=== PATIENT | male | born 1990 | race Caucasian/White ===

== ENCOUNTER 2016-12-07 05:36 | Day surgery (SDC) | payer BC ==
[2016-12-06 12:23] VITALS: BMI 24.3
[~2016-12-07] VITALS: Ht 200.7 cm; Wt 98.0 kg
[2016-12-07] VITALS (16 sets, daily range): BP systolic 120–138; BP diastolic 60–78; PULSE 75–90; RESP 10–20; Ht 200.7 cm; Wt 98.0 kg
[2016-12-07] MEDS ORDERED: CEFAZOLIN 1 GM INJ ONE (07:00)
[2016-12-07] MEDS ORDERED: SOD CHLORIDE 0.9% 1,000 ML IV SCH (07:00)
[2016-12-07] MEDS ORDERED: MIDAZOLAM 1 MG/ML 2 ML INJ ONE (09:46)
[2016-12-07] MEDS ORDERED: BUPIVACAINE 0.25%/EPI (SDV) 30 ML INJ ONE (09:46)
[2016-12-07] MEDS ORDERED: GLYCOPYRROLATE 1 MG INJ ONE (09:46)
[2016-12-07] MEDS ORDERED: PROPOFOL 20 ML ONE (09:46)
[2016-12-07] MEDS ORDERED: ROCURONIUM 50 MG INJ ONE (09:46)
[2016-12-07] MEDS ORDERED: EPINEPHrine 1 MG/ML 30 ML INJ ONE (09:46)
[2016-12-07] MEDS ORDERED: LIDOCAINE 2% (SDV) 5 ML INJ ONE (09:46)
[2016-12-07] MEDS ORDERED: NEOSTIGMINE 3 MG/3 ML SYRINGE ONE (09:46)
[2016-12-07] MEDS ORDERED: DEXAMETHASONE 4 MG/ML 1 ML INJ ONE (09:51)
[2016-12-07] MEDS ORDERED: ONDANSETRON 4 MG INJ ONE (09:51)
--- NOTE | 2016-12-07 10:07 | HPN ---
Date/Time of Note Date/Time of Note DATE: 12/07/16 TIME: 10:06 Interval H&P Admission Note Pt. seen H&P reviewed: No system changes DANIELLE CAST MD Dec 07, 2016 10:07
[2016-12-07] MEDS ORDERED: POLYMYXIN/BACITRACIN 1L IRRIG ONE (11:13)
[2016-12-07] MEDS ORDERED: ROPIVACAINE 0.5 % 30 ML VIAL ONE (13:08)
[2016-12-07] MEDS ORDERED: LIDOCAINE 2%/EPI 30 ML INJ ONE (13:09)
[2016-12-07] MEDS ORDERED: FLUMAZENIL 0.5 MG INJ ONE (13:43)
[2016-12-07] MEDS ORDERED: NALOXONE (0.4 MG/ML) INJ ONE (13:53)
[2016-12-07] MEDS ORDERED: HYDROCODONE/APAP (5/325) TAB PO PRN ×2 (14:00)
[2016-12-07] MEDS ORDERED: ACETAMINOPHEN 1000MG/100ML IV 100 ML IVPB SCH (14:00)
[2016-12-07] MEDS ORDERED: ONDANSETRON 4 MG INJ IV PRN ×2 (14:00→14:30)
[2016-12-07] MEDS ORDERED: morphine 10 MG INJ IV PRN (14:00)
[2016-12-07] MEDS ORDERED: HYDROmorphONE (0.2 MG/ML) 10ML SYG IV ONE (14:16)
[2016-12-07] MEDS: HYDROmorphONE (0.2 MG/ML) 10ML SYG IV PRN ×5 (14:18→14:43)
[2016-12-07] MEDS ORDERED: FENTAnyl 50 MCG/ML VIAL IV PRN ×2 (14:30)
[2016-12-07] MEDS ORDERED: HYDROmorphONE (0.2 MG/ML) 10ML SYG IV PRN ×2 (14:30)
--- NOTE | 2016-12-07 17:24 | OPR ---
DATE OF OPERATION: 12/07/2016 SURGEON: Danielle Rosa MD ANESTHESIOLOGIST: Harris Guzman MD PREOPERATIVE DIAGNOSIS: Left anterior cruciate ligament tear. POSTOPERATIVE DIAGNOSES 1. Left anterior cruciate ligament tear. 2. Left lateral meniscal tear. OPERATION PERFORMED 1. Arthroscopy of the left knee. 2. Arthroscopic anterior cruciate ligament reconstruction with gracilis hamstring autograft and tib ialis anterior allograft hybrid. 3. Arthroscopic lateral meniscectomy. 4. Chondroplasty. 5. Synovectomy. INDICATIONS: Flaco is a 26-year-old male, we have been seeing for an ACL tear that he sustained in the last year, as well as meniscal tears. Informed him of the risks of surgery, including pain, bl eeding, infection, scar, damage to neurovascular structures, failure of the surgery to work, blood c lots of the upper extremities/lower extremities, pulmonary embolism, risk of anesthesia and we re explained to the patient. Failure of the ligament repair, harvest site donor problems and other complications of ACL surgery were explained to the patient. He elected to proceed. PROCEDURE IN DETAIL: The patient was marked identified in preoperative holding, brought to the oper ating room, placed supine on a regular operating room table, the lateral side post. He was placed u nder general anesthesia. Bony prominences were well-padded and a tourniquet was placed high on the thigh. His left leg was prepped and draped in the usual sterile fashion and arthroscopy was initiat ed, after a timeout was performed. A diagnostic arthroscopy was first initiated and the positive findings included an anterior cruciate ligament tear, as well as a lateral meniscal tear. The tear was significantly larger on MRI of his lateral meniscus, but this had since healed and the fissure line was visible. There was one area o f radial-based tear and it was not healed and this area underwent a meniscectomy, using a combinatio n of biting and shaving instruments. Attention was turned to the remnant of the ACL. With the footprint gone and there was no attachment to the lateral wall, the notchplasty was performed, clearing the lateral wall for eventual ACL femo ral tunnel, as well as the same thing on the tibia. Arthroscope was removed and attention was turned to a medial based incision of the anterior medial t ibia, where incision was carried down to the hamstring tendons. First identified through the perios teal layer, the gracilis tendon was excised using a tendon stripper, and this was removed. The size of the gracilis tendon was lengthy; however, it was exceptionally thin and it was clear that combin ing this with semitendinosis would not constitute an appropriate sized graft. Therefore, the semite ndinosis was not harvested, the gracilis was kept and a tibialis anterior allograft, which was avail able, was opened and made available for use. On the back table, the 2 tendons were weaved together for a hybrid of allograft and autograft result ing in a robust sized graft of 10.5 in size. Arthroscopy was initiated, the plan was made for the t ibial tunnel using our guide, and this was drilled a size 10, and an accessory anteromedial portal w as made for our femoral tunnel with an over the top guide of 7 mm used, resulting in a 2 mm back wal l. Femoral tunnel was drilled as well. This was drilled to a size 25 socket for the graft. Attention was now turned to the graft itself, with a suture carried through both ends of the femur a nd tibia, and the graft passed with a Peterson and [employer] Ultrabutton used for femoral fixation. This was ratcheted in until the tendon was well-socketed within the femur. The knee was now taken throug h over 20 cycles of flexion, extension, with the graft well-tensioned, a posterior drawer force was applied, and at this time, DePuy Mitek screw sheath system was determined to be used for the tibia, but it was not of appropriate purchase. Therefore, this graft was re-tensioned manually with supervisor brake repair ior drawer force applied and a Sheffield staple was applied to perform tibial fixation; this was plac ed in the anteromedial tibia. The graft was checked and arthroscopy was initiated to confirm adequa te positioning of the graft, which was in good position and there was a negative Macarena and negativ e pivot shift. At this time, a 2nd Sheffield staple was placed more inferiorly for backup fixation. The limbs of the allograft were cut, the area was copiously irrigated and closure was performed wit h a 2-0 Vicryl, followed by 3-0 Monocryl and then nylon for this incision. The portals were closed with 2-0 Monocryl and a single nylon was placed higher on the lateral thigh for where the EndoButton sutures were and these were cut to size. A sterile dressing was applied and the DVT compression de vice was applied as well as a knee immobilizer. There was an issue obtaining the patient's hinged k nee brace, which we will deal with the insurance company to try and get, but for now he will remain partial weightbearing in full extension. Dictated By: DANIELLE FAULKNER/NTS Conf#: [id number] DID#: [id number]
== END 2016-12-07 16:41 | disposition home or self-care (01) ==
LOC: SDS 05:36
PROVIDERS: ATTEND Orthopaedic Surgery
DX: M23.8X2 Other internal derangements of left knee (principal); M23.201 Derangement of unspecified lateral meniscus due to old tear or injury, left knee
CPT/HCPCS: 29881; 29888; C1713; C1762; J0131; J0171; J0690; J1100; J1170; J2250; J2310; J2405; J2710; J2795; J3010; Z7512; Z7610

== ENCOUNTER 2016-12-28 12:03 | Emergency (ER) | payer BC ==
[~2016-12-28] VITALS: Wt 94.0 kg
[2016-12-28] MEDS ORDERED: HYDR-906 PO (15:07)
--- NOTE | 2016-12-28 15:48 | RADRPT ---
PROCEDURE: Ultrasound of the left lower extremity venous system. CLINICAL INDICATION: Left leg pain and swelling, deep venous thrombosis TECHNIQUE: Mathew scale with and without compression, color doppler, spectral doppler of the venous system of the left lower extremity was performed. Venous augmentation maneuvers were utilized. COMPARISON: No prior studies are available for comparison. FINDINGS: Common femoral vein: Patent. Femoral vein: Patent. Popliteal vein: Patent. Calf veins: Patent. No soft tissue abnormalities are identified. IMPRESSION: No evidence of a deep vein thrombosis within the left lower extremity. RPTAT: AADD .Filiberto Diaz MD, MD Date Time Electronically viewed and signed by .Filiberto Diaz MD, on 12/28/2016 15:47 .B/
[2016-12-28 15:56] VITALS: BP 133/78; PULSE 70; RESP 18; TEMP 97.5
--- NOTE | 2016-12-28 18:14 | ERD ---
ER Documentation Chief Complaint Date/Time DATE: 12/28/16 TIME: 18:12 Chief Complaint left calf pain from acl surgery and has postive d dimer, no sob or cp HPI Patient is a 26-year-old male with no medical problems who presents with left leg swelling. The patient went to physical therapy yesterday and had left foot swelling and left leg swelling. He was sent to the sports medicine doctor who order laboratory tests and found that he had a positive d-dimer. The patient denies chest pain or shortness of breath. The patient had surgery on his left knee to repair his ACL on December 07. Upon review of old medical records this is the patient's first visit to the emergency department. He says that his orthopedic doctor is Dr. Cast. ROS All systems reviewed and are negative except as per history of present illness. Medications Home Meds Reported Medications Hydrocodone/Acetaminophen (Romulus 5-325 Tablet) 1 Each Tablet, 1 EACH PO DAILY Y for PRN, TAB 12/28/16 Allergies Allergies: Coded Allergies: No Known Allergy (Unverified , 12/06/16) PMhx/Soc History of Surgery: Yes (left acl repair ) Anesthesia Reaction: No Hx Neurological Disorder: No Hx Respiratory Disorders: No Hx Cardiac Disorders: No Hx Psychiatric Problems: No Hx Miscellaneous Medical Probl: No Hx Alcohol Use: Yes (social) Hx Substance Use: No Hx Tobacco Use: No Smoking Status: Never smoker FmHx Family History: No diabetes Physical Exam Vitals Vital Signs Date Time Temp Pulse Resp B/P Pulse Ox O2 Delivery O2 Flow Rate FiO2 12/28/16 15:56 97.5 70 18 133/78 18 Room Air 12/28/16 12:10 98.1 85 20 124/79 98 Physical Exam Const: No acute distress Head: Atraumatic Eyes: Normal Conjunctiva ENT: Normal External Ears, Nose and Mouth. Neck: Full range of motion..~ No meningismus. Resp: Clear to auscultation bilaterally Cardio: Regular rate and rhythm, no murmurs Abd: Soft, non tender, non distended. Normal bowel sounds Skin: Blotchy red rash diffusely across the left leg without signs of warmth Back: No midline or flank tenderness Ext: Left leg swelling from the thigh to the ankle Neur: Awake and alert Psych: Normal Mood and Affect Procedures/MDM Ultrasound of the left lower extremity was negative for DVT per radiology. Patient is a 26-year-old male with no medical problems who presents with left leg swelling. Ultrasound shows no sign of DVT. I doubt infection. There is no sign of infected joint or fever. The patient has red blotches to the left leg which are of unclear etiology but I do not think there life or limb threatening. The patient has good pulses. He can return for any worsening symptoms. He should follow-up with his orthopedic doctor within 24-48 hours. He had a positive d-dimer but I doubt pulmonary embolism as he has no chest pain or shortness of breath. His vital signs are normal and I believe the risks of doing a CT scan of the chest outweigh the benefits. Departure Diagnosis: Primary Impression: Leg swelling Condition: Fair Patient Instructions: Reducing Knee Pain and Swelling Referrals: DANIELLE CAST MD Additional Instructions: Specialist:Usted tiene vibha condicin mdica que requiere que carlo a un especialista dentro de los prximos 1-2 perez.POR FAVOR,CON [place] SEGUIMIENTO DE PRIMARIA PHSICIAN refferal. SI USTED NO TIENE UN MDICO GENERAL Y / O USTED NO PUEDE PAGAR ruthy a un mdico,los siguientes calixto RECURSOS sido suministrado a usted. ES [place] RESPONSABILIDAD PARA SER VISTOS POR EL ESPECIALISTA: BRENDA AVILEZ MD December 28, 2016 18:14
== END 2016-12-28 16:01 | disposition home or self-care (01) ==
LOC: E/R 12:03
DX: M79.89 Other specified soft tissue disorders (principal)
CPT/HCPCS: 93971